=== PATIENT | female | born 1950 | race Caucasian/White ===

== ENCOUNTER → 2017-11-30 | Day surgery (SDC) | payer BC ==
[2017-11-14 14:46] LABS: BASOPHILS % 0.7 % (0.0-1.0); EOSINOPHILS # (AUTO) 0.1 (0.0-0.4); EOSINOPHILS % 3.1 % (0.0-6.0); HEMATOCRIT 40.6 % (34.2-44.1); HEMOGLOBIN 13.1 g/dL (12.0-16.0); LYMPHOCYTES # (AUTO) 1.3 (1.0-3.2); LYMPHOCYTES % 29.5 % (18.0-39.1); MEAN CORPUSCULAR HGB CONC 32.3 g/dL (31-35); MONOCYTES # (AUTO) 0.4 (0.2-0.8); MONOCYTES % 8.6 % (4.4-11.3); NEUTROPHILS # (AUTO) 2.6 (2.1-6.9); NEUTROPHILS % 57.9 % (38.7-80.0); PLATELET COUNT 284 x10e3/uL (140-360); RED BLOOD COUNT 4.51 x10e6/uL (3.6-5.1); RED CELL DISTRIBUTION WIDTH 13.7 % (11.7-14.4)
--- NOTE | 2017-11-14 14:46 | Diagnostic Imaging Report ---
EXAMINATION: PA and lateral views of the chest. COMPARISON: None CLINICAL HISTORY: Preoperative evaluation, breast cancer DISCUSSION: Lines/tubes: None. Lungs: The lungs are well inflated and clear. No pneumonia or pulmonary edema. Pleura: No pleural effusion or pneumothorax. Heart and mediastinum: The cardiomediastinal silhouette is normal. Bones and soft tissues: No acute bony abnormalities. Age indeterminate wedge deformity of approximately T6. IMPRESSION: No acute cardiopulmonary abnormalities. Signed by: Dr. Santy Harden M.D. on 11/14/2017 2:42 PM
[2017-11-14 14:56] LABS: INR 0.77; PARTIAL THROMBOPLASTIN TIME 25.5 seconds (23.8-35.5); PROTHROMBIN TIME 11.5 seconds (11.9-14.5)
[2017-11-14 15:03] LABS: ALANINE AMINOTRANSFERASE 17 IU/L (0-55); ALBUMIN 3.7 g/dL (3.5-5.0); ALBUMIN/GLOBULIN RATIO 1.1 (0.8-2.0); ALKALINE PHOSPHATASE 105 IU/L (40-150); ANION GAP 14.6 mmol/L (8-16); BLOOD UREA NITROGEN 17 mg/dL (7-26); BUN/CREATININE RATIO 21 (6-25); CALCIUM 9.6 mg/dL (8.4-10.2); CARBON DIOXIDE 27 mmol/L (22-29); CHLORIDE 105 mmol/L (98-107); CREATININE, SERUM 0.81 mg/dL (0.57-1.11); EST GLOMERULAR FILTRATION RATE > 60 ML/MIN (60-); GLUCOSE 91 mg/dL (74-118); POTASSIUM 3.6 mmol/L (3.5-5.1); SODIUM 143 mmol/L (136-145)
[~2017-11-30] MED LIST: ACETAMINOPHEN 1000 MG/100 ML IV ONE; BIOTIN5 M1 PO; BUPIVACAINE HCL 0.5% INJ 30 ML VIAL INJ ONE; CALCIUM PO; CEFAZOLIN SOD 1 GM VIAL ONE; DEXAMETHASONE SOD PHOS INJ 4 MG/ML VIAL ONE; EPINEPHRINE HCL INJ 1 MG/ML AMP ONE; FENTANYL CITRATE/PF 100MCG/2 ML INJ ONE; LETROZOLE2.5 MG PO; LIDOCAINE HCL 1% 30ML-PF VIAL ONE; LIDOCAINE HCL 2% LOCAL INJ 5 ML SDV VIAL INJ ONE; MIDAZOLAM HCL 2 MG/2 ML VIAL ONE; MORPHINE SULFATE INJ 10 MG/ML ONE; MULTIVITAMINS1 EAC7 PO; ONDANSETRON HCL INJ 2 MG/ML VIAL ONE; PREVACID30 MG PO; PREVAGEN PO; PROBIOTIC & AC1 EACH PO; PROPOFOL IV EMULSION 10 MG/ML 20 ML VIAL ONE; SEVOFLURANE INHAL SOLN 250 ML PEN BTL ONE; TERBINAFINE HC250 MG PO; VIT D PO; VITAMIN D35000 UNIT PEG; WELLBUTRIN SR150 MG PO; [UNRECOGNIZED DRUG - OTHER]; [UNRECOGNIZED DRUG - OTHER] PO
[2017-11-30 11:45] VITALS: BP 109/63
--- OUTSIDE RECORDS SUMMARY | 2017-12-05 12:55 | XMS REPORT | Clinical Summary ---
Author Author [facility] Address Unknown Phone Unavailable Care Team Providers Care Direct Support Worker Name Role Phone Munira Thorpe MD PCP Allergies No Known Allergies Current Medications Prescription Sig. Disp. Refills Start End Date Status Date MULTIVITAMIN ORAL Take 1 tablet by mouth. Active terbinafine HCl (LamiSIL) TK 1 T PO ONCE A DAY 0 03/10/19 Active 250 mg tablet 17 egtaymu-nqkruzhmu-awqm Take 1 tablet by mouth. Active tablet jxrnabd-hdwbbvipz-qvqr Take 1 tablet by mouth Active tablet daily. acetaminophen (TYLENOL) Take 500 mg by mouth as Active 500 MG tablet needed. gabapentin (NEURONTIN) Take 300 mg by mouth 2 09/07/19 Active 300 mg capsule (two) times a day. 17 Saccharomyces boulardii Take 250 mg by mouth Active (FLORASTOR) 250 mg daily. capsule Lactobac no.41/Bifidobact Take by mouth. Active no.7 (PROBIOTIC-10 ORAL) buPROPion (WELLBUTRIN) 75 Take 75 mg by mouth 2 Active MG tablet (two) times a day. trastuzumab (HERCEPTIN Infuse into a venous Active IV) catheter. lansoprazole (PREVACID) One a day 90 capsule 3 06/10/19 Active 30 MG capsule 18 sodium,potassium,mag DIRECTED ON OFFICE 2 Bottle 0 06/24/19 Active sulfates (SUPREP BOWEL ORDERS 18 PREP KIT) 17.5-3.13-1.6 gram recon soln lansoprazole (PREVACID) One a day 90 capsule 3 03/14/19 06/10/19 Discontin 30 MG capsule 17 18 ued lansoprazole (PREVACID) Take 1 capsule (30 mg 90 capsule 0 03/03/19 06/02/19 30 MG capsule total) by mouth daily for 18 18 90 days. Active Problems Not on file Encounters Date Type Specialty Care Team Description 12/01/2017 Telephone Gastroenterology Anna Macdonald 09/18/2017 Telephone Gastroenterology Leonel Beltran MD 08/03/2017 Telephone Gastroenterology Ese Barba MA 06/23/2017 Orders Only Gastroenterology Aracely Trammell MA Colon cancer screening (Primary Dx) 06/09/2017 Office Visit Gastroenterology Leonel Beltran MD Gastroesophageal reflux disease without esophagitis (Primary Dx); Hiatal hernia; Gastritis without bleeding, unspecified chronicity, unspecified gastritis type; Diverticulosis of large intestine without hemorrhage 05/18/2017 [facility] Radiation Oncology Savannah Jaquez MD Encounter 05/17/2017 [facility] Radiology Omaira Todd MD Malignant neoplasm of Encounter upper-outer quadrant of left female breast, unspecified estrogen receptor status 03/17/2017 [facility] Omaira Todd MD Malignant neoplasm of Orders upper-outer quadrant of left female breast, unspecified estrogen receptor status (Primary Dx) 03/03/2017 Telephone Gastroenterology Leonel Beltran MD 02/17/2017 [facility] Radiology Omaira Todd MD Encounter 02/17/2017 Hospital Radiology Omaira Todd MD Encounter 02/17/2017 [facility] Radiology Omaira Todd MD Encounter for Encounter chemotherapy management; Malignant neoplasm of upper-outer quadrant of left female breast, unspecified estrogen receptor status 12/23/2016 [facility] Omaira Todd MD Encounter for Orders chemotherapy management (Primary Dx); Malignant neoplasm of upper-outer quadrant of left female breast, unspecified estrogen receptor status after 11/29/2016 Family History Medical History Relation Name Comments Lung cancer Brother Lung cancer Father Lung cancer Mother Relation Name Status Comments Brother Father Mother Social History Tobacco Use Types Packs/Day Years Used Date Never Smoker Smokeless Tobacco: Never Used Alcohol Use Drinks/Week oz/Week Comments No Sex Assigned at Date Recorded Not on file Last Filed Vital Signs Vital Sign Reading Time Taken Blood Pressure 146/84 06/09/2017 11:30 AM CDT Pulse 62 06/09/2017 11:30 AM CDT Temperature 36.5 C (97.7 F) 06/09/2017 11:30 AM CDT Respiratory Rate - - Oxygen Saturation - - Inhaled Oxygen - - Concentration Weight 86.6 kg (191 lb) 06/09/2017 11:30 AM CDT Height - - Body Mass Index 27.41 06/09/2017 11:30 AM CDT Plan of Treatment Date Type Specialty Care Team Description 02/02/2018 Surgery Gastroenterology Leonel Beltran MD COLONOSCOPY [address] [facility] [address] [place], [place] [address] 02/02/2018 Procedure Pass Gastroenterology 02/02/2018 Hospital Gastroenterology Leonel Beltran MD Encounter [address] [facility] [address] [place], [place] [address] Health Maintenance Due Date Last Done Comments COLON CANCER SCREENING 05/25/2001 SHINGRIX VACCINE (#1) 05/25/2001 ZOSTER VACCINE 2011 BREAST CANCER SCREENING 12/22/2011 12/21/2009, 01/29/2008 PNEUMOCOCCAL 05/25/2016 POLYSACCHARIDE VACCINE AGE 65 AND OVER PNEUMOCOCCAL-13 05/25/2016 INFLUENZA VACCINE 09/20/2017 Implants Implanted Type Area [employer] Device Expiration Model / Identifier Date Serial / Lot Cook [employer]elect [place] Nav[employer] Vascular COOK PERIPHERAL [id number] / Femoral Vena Cava Filter - Filter INTERVENTION / [id number] Implanted: 09/13/2016 (Quantity not on file) [employer] Procedures Procedure Name Priority Date/Time Associated Diagnosis Comments NM X GATED BLOOD POOL Routine 05/17/2017 Malignant neoplasm of Results for this SINGLE ([facility]) 12:35 PM CDT upper-outer quadrant of procedure are in the left female breast, results section. unspecified estrogen receptor status NM X GATED BLOOD POOL Routine 02/17/2017 Encounter for Results for this SINGLE ([facility]) 1:58 PM HUMAN PROJECTILE chemotherapy management procedure are in the Malignant neoplasm of results section. upper-outer quadrant of left female breast, unspecified estrogen receptor status after 11/29/2016 Results * NM X Gated Blood Pool Single (05/17/2017 12:35 PM) Only the most recent of 2 results within the time period is included. Narrative Performed At PROCEDURE:NM X GATED BLOOD POOL SINGLE ([facility]). [facility] INDICATION:Breast cancer.Cardiotoxic chemotherapy. TECHNIQUE: The patients own red blood cells were labeled with 25 mCi of Tc-99m pertechnetate. The cells were reinjected into the patient and dynamic gated cardiac blood pool imaging was performed. FINDINGS:Left ventricular wall motion appears normal.No akinetic or dyskinetic segments.Calculated ejection fraction is 56%.This appears decreased from 02/17/2017. IMPRESSION: 1.Normal left ventricular wall motion with calculated EF of 56%. [facility]-[id number] Procedure Note Interface, Radiology Results Incoming - 05/17/2017 1:54 PM CDT PROCEDURE: NM X GATED BLOOD POOL SINGLE ([facility]). INDICATION: Breast cancer. Cardiotoxic chemotherapy. TECHNIQUE: The patients own red blood cells were labeled with 25 mCi of Tc-99m pertechnetate. The cells were reinjected into the patient and dynamic gated cardiac blood pool imaging was performed. FINDINGS: Left ventricular wall motion appears normal. No akinetic or dyskinetic segments. Calculated ejection fraction is 56%. This appears decreased from 02/17/2017. IMPRESSION: 1. Normal left ventricular wall motion with calculated EF of 56%. [facility]-[id number] Performing Organization Address [facility] [address] [place] [address] after 11/29/2016 Insurance Payer Benefit Subscriber ID Type Phone Address Plan / Group BCBS BCBS xxxxxxxxxxxx PPO CHOICE PPO/LESLIE GOLDMAN PPO
--- OUTSIDE RECORDS SUMMARY | 2017-12-05 12:55 | XMS REPORT ---
[facility] Address Unknown Phone Unavailable Care Team Providers Care Official Greeter Name Role Phone RAKAN ABREU Unavailable Unavailable Problems This patient has no known problems. Allergies, Adverse Reactions, Alerts This patient has no known allergies or adverse reactions. Medications This patient has no known medications. Results Test Description Test Time Test Comments Text Results Atomic Results Result Comments CHEST 2 VIEWS 2017-11-14 14:41:00 [place] [address] Patient Name: HASMUKH BAZAN MR #: [id number] : 1950 Age/Sex: 67/F Req #: [id number] [facility] Physician: Ordered by: RAKAN ABREU MD Report #: [id number] Location: OR Room/Bed: Procedure: [id number] DX/CHEST 2 VIEWS Exam Date: 11/14/17 Exam Time: 1420 REPORT STATUS: Signed EXAMINATION: PA and lateral views of the chest. COMPARISON: None CLINICAL HISTORY: Preoperative evaluation, breast cancer DISCUSSION: Lines/tubes: None. Lungs: The lungs are well inflated and clear. No pneumonia or pulmonary edema. Pleura: No pleural effusion or pneumothorax. Heart and mediastinum: The cardiomediastinal silhouette is normal. Bones and soft tissues: No acute bony abnormalities. Age indeterminate wedge deformity of approximately T6. IMPRESSION: No acute cardiopulmonary abnormalities. Signed by: Dr. Adrián Rosen M.D. on 11/14/2017 2:42 PM Dictated By: ADRIÁN ROSEN MD [id number] Transcribed By: LINDA on 11/14/17 144 COPY TO: RAKAN ABREU MD
--- NOTE | 2017-12-18 10:54 | Operative Report ---
DATE OF PROCEDURE: November 30, 2017 PREOPERATIVE DIAGNOSES 1. History of left breast cancer. 2. Acquired deformity of left breast. POSTOPERATIVE DIAGNOSES 1. History of left breast cancer. 2. Acquired deformity of left breast. PROCEDURE PERFORMED: Left breast reconstruction with fat transfer to left breast, approximately 170 mL of purified fat transfer to left breast. ANESTHESIA: LMA. INDICATIONS FOR SURGERY: This is a 67-year-old female who last year underwent a left breast partial mastectomy and reconstruction with local advancement flaps. The patient subsequently had radiation and currently complains of deformity of the left breast as well as asymmetry. The patient desires left breast reconstruction with fat transfer to the left breast. The risks, alternatives, and possible complications of the above procedure were explained to the patient. These include, but are not limited to bleeding, infection, scarring, breast asymmetry, wound dehiscence, firmness, a lumpiness, failure of fat transfer, skin irregularities, fat necrosis, deep venous thrombosis, pulmonary embolism, unsatisfactory aesthetic result, and possible need for further surgery. The patient had an opportunity to ask questions and have her questions answered and agreed to proceed with the proposed procedure. PROCEDURE IN DETAIL: The patient was marked in the preoperative holding area. She was then transferred to the operating room and placed supine on the operating table. After adequate general anesthesia, the patient's bilateral breasts, abdomen and flanks were prepped and draped in the usual surgical fashion. Attention was then turned to the patient's abdomen and bilateral flanks, which were the donor sites for the fat transfer. Through 2 small incisions in the suprapubic area, tumescent fluid was injected first in the patient's abdomen, approximately 1,400 mL. Additional 300 mL of tumescent was injected in each flank area to a total of 2,000 mL. After adequate time was given for the tumescent to act, suction-assisted lipectomy was undertaken with 3-mm cannula, and 1,000 mL of aspirate were removed in total, 700 from the patient's abdomen and a 150 mL from each flank area. The aspirate was then purified using the Puregraft fat purification system. The donor site areas were closed with a single stitch of 5-0 chromic. Attention was then turned to the patient's left breast, and 170 mL of purified fat were injected into the patient's left breast with a blunt-tip 16-gauge fat transfer cannula. The fat was transferred throughout the entire breast to compensate for the smaller size of that breast after the radiation and lumpectomy. At the end of the case, the 2 breasts appeared fairly symmetric, though the left one was slightly larger to compensate for the take of the fat transfer. The lower abdominal donor site incisions were covered with ABD pad and a compression girdle. The patient's left breast was covered with Xeroform and ABD pads and wrapped with a large 6-inch Yasmani wrap. She tolerated the procedure well. There were no immediate complications. The needle and instrument count was correct at the end of the case. She was transferred extubated to the recovery room. Job#: [id number]
== END | disposition home or self-care (01) ==
LOC: OR 06:05
PROVIDERS: ATTEND Plastic Surgery
DX: N65.0 Deformity of reconstructed breast (principal); N65.1 Disproportion of reconstructed breast; Z85.3 Personal history of malignant neoplasm of breast; K21.9 Gastro-esophageal reflux disease without esophagitis; Z88.6 Allergy status to analgesic agent; Z01.810 Encounter for preprocedural cardiovascular examination; Z01.812 Encounter for preprocedural laboratory examination; Z01.818 Encounter for other preprocedural examination
CPT/HCPCS: 20926; 36415; 71046; 80053; 85025; 85610; 85730; 93005; J0171; J0690; J1100; J2001 ×2; J2250; J2270; J2405